=== PATIENT | female | born 1970 | race Caucasian/White ===

== ENCOUNTER → 2016-06-22 | Outpatient (CLI) | payer BC ==
[~2016-06-22] MED LIST: AMOXICILLIN 8751 TAB PO; BENADRYL25 M2 PO; COLACE 100100 MG/CAP PO; CYMBALTA 60MG60 MG PO; MOTRIN 200200 MG/TAB PO; MOTRIN 600600 MG/TAB PO; MULTIPLE VITAMI1 CAP PO; NORCO 325 MG-51 TAB PO; PERCOCET 325 MG1 TA2 PO; PROZAC 20MG20 MG PO; VITAMIN B121000 MCG PO; VITAMIN D 400400 IU PO; ZOFRAN ODT4 MG PO
== END ==
LOC: COL.RAD 07:51
DX: D48.1 Neoplasm of uncertain behavior of connective and other soft tissue (principal); R93.3 Abnormal findings on diagnostic imaging of other parts of digestive tract; Z90.710 Acquired absence of both cervix and uterus; R10.11 Right upper quadrant pain; K43.9 Ventral hernia without obstruction or gangrene
CPT/HCPCS: Q9967

== ENCOUNTER 2016-06-26 07:23 | Day surgery (SDC) | payer BC ==
[~2016-06-26] VITALS: Ht 157.5 cm; Wt 75.6 kg
[~2016-06-26 07:23] MED LIST changes: -AMOXICILLIN 8751 TAB PO; -BENADRYL25 M2 PO; -COLACE 100100 MG/CAP PO; -CYMBALTA 60MG60 MG PO; -MOTRIN 200200 MG/TAB PO; -MOTRIN 600600 MG/TAB PO; -PERCOCET 325 MG1 TA2 PO; -PROZAC 20MG20 MG PO; -ZOFRAN ODT4 MG PO
[2016-06-26 08:23] VITALS: BP 110/68; PULSE 90; TEMP 97.9
[2016-06-26] MEDS ORDERED: PROZAC 20MG20 MG PO ×2 (08:39→11:58)
[2016-06-26] MEDS ORDERED: PERCOCET 325 MG1 TA2 PO ×3 (08:40→12:07)
[2016-06-26] MEDS ORDERED: BENADRYL25 M2 PO (08:41)
[2016-06-26] MEDS ORDERED: MOTRIN 200200 MG/TAB PO (08:41)
[2016-06-26 11:40] VITALS: BP 131/92; PULSE 85
[2016-06-26 11:55] VITALS: BP 115/72; PULSE 58
[2016-06-26] MEDS ORDERED: ZOFRAN ODT4 MG PO ×2 (11:58→12:07)
[2016-06-26 12:10] VITALS: BP 96/64; PULSE 70
== END 2016-06-26 12:50 | disposition home or self-care (01) ==
LOC: SDCO 07:23
DX: D17.1 Benign lipomatous neoplasm of skin and subcutaneous tissue of trunk (principal)
CPT/HCPCS: J0690; J1885; J2405; J2704; J3010; J7120

== ENCOUNTER 2017-02-21 13:16 | Day surgery (SDC) | payer BC ==
[2017-02-21] VITALS (7 sets, daily range): BP systolic 109–149; BP diastolic 69–92; PULSE 67–100; TEMP 98.1–99
[~2017-02-21] VITALS: Ht 157.5 cm; Wt 73.4 kg
[~2017-02-21 13:16] MED LIST changes: -AMOXICILLIN 8751 TAB PO; -COLACE 100100 MG/CAP PO; -CYMBALTA 60MG60 MG PO; -MOTRIN 600600 MG/TAB PO
[2017-02-21] MEDS ORDERED: CYMBALTA 60MG60 MG PO (13:59)
[2017-02-21] MEDS ORDERED: PERCOCET 325 MG1 TA2 PO (16:42)
[2017-02-21] MEDS ORDERED: MOTRIN 600600 MG/TAB PO (16:43)
[2017-02-21] MEDS ORDERED: COLACE 100100 MG/CAP PO (16:43)
[2017-02-21] MEDS ORDERED: AMOXICILLIN 8751 TAB PO (16:53)
== END 2017-02-21 20:55 | disposition home or self-care (01) ==
LOC: SDCO 13:16 → JCC 17:05 → SDCO 20:55
DX: K35.80 Unspecified acute appendicitis (principal); K21.9 Gastro-esophageal reflux disease without esophagitis; F32.9 Major depressive disorder, single episode, unspecified; F17.210 Nicotine dependence, cigarettes, uncomplicated; F41.9 Anxiety disorder, unspecified; Z90.710 Acquired absence of both cervix and uterus; Z90.721 Acquired absence of ovaries, unilateral
CPT/HCPCS: J2270; J2550; J7120

== ENCOUNTER → 2017-02-21 | Outpatient (CLI) | payer BC ==
[~2017-02-21] MED LIST changes: +AMOXICILLIN 8751 TAB PO; +BENADRYL25 M2 PO; +COLACE 100100 MG/CAP PO; +CYMBALTA 60MG60 MG PO; +MOTRIN 200200 MG/TAB PO; +MOTRIN 600600 MG/TAB PO; +PERCOCET 325 MG1 TA2 PO; +PROZAC 20MG20 MG PO; +ZOFRAN ODT4 MG PO
[2017-02-21 12:12] LABS: BASO # 0.1 (0.0-0.2); BASO % 0.9 % (0.0-2.0); EOS # 0.1 (0.0-0.7); EOS % 0.7 % (0-4.0); GRAN # 4.7 (1.4-6.5); GRAN % 57.4 % (42.2-75.2); HEMATOCRIT 39.5 % (37.0-47.0); HEMOGLOBIN 13.1 g/dl (12.5-16.0); LYMPH # 2.6 (1.2-3.4); LYMPH % 32.4 % (20.0-51.0); MEAN CELL VOLUME 93 fl (80.0-100.0); MEAN CORPUSCULAR HEMOGLOBIN 31 pg (27.0-31.0); MEAN CORPUSCULAR HGB CONC 33 g/dl (33.0-37.0); MEAN PLATELET VOLUME 9.2 fl (7.4-10.4); MONO # 0.7 (0.1-0.6); MONO % 8.4 % (1.7-9.3); PLATELET COUNT 357 K/mm3 (130-400); RED BLOOD COUNT 4.23 M/mm3 (4.10-5.30); REDCELL DISTRIBUTION WIDTH-CV 11.9 % (11.5-14.5); WHITE BLOOD COUNT 8.1 K/mm3 (4.8-10.8)
[2017-02-21 12:31] LABS: ADJUSTED CALCIUM 9.3 mg/dL (8.4-10.2); ALBUMIN 4.2 gm/dL (3.5-5.0); BILIRUBIN,TOTAL 0.5 mg/dL (0.0-1.0); CALCIUM 9.5 mg/dL (8.4-10.2); CREATININE, serum 0.64 mg/dL (0.52-1.25); POTASSIUM 4.4 mmol/L (3.4-5.0); TOTAL PROTEIN 7.5 gm/dL (6.4-8.2)
== END ==
LOC: COL.RAD 09:58
PROVIDERS: Family Medicine
DX: R10.31 Right lower quadrant pain (principal); N81.10 Cystocele, unspecified
CPT/HCPCS: J0694; J1100; J2405; J2704; J2710; J3010; Q9967

== ENCOUNTER → 2017-03-01 | Outpatient (CLI) | payer BC ==
[~2017-03-01] MED LIST changes: +AMOXICILLIN 8751 TAB PO; +COLACE 100100 MG/CAP PO; +CYMBALTA 60MG60 MG PO; +MOTRIN 600600 MG/TAB PO
== END ==
LOC: COL.RAD 15:02
DX: R10.30 Lower abdominal pain, unspecified (principal); Z90.89 Acquired absence of other organs
CPT/HCPCS: Q9967

== ENCOUNTER → 2018-02-06 | Outpatient (CLI) | payer OTHER | LOC: MC.RAD 10:12 | DX: Z12.31 Encounter for screening mammogram for malignant neoplasm of breast (principal) ==

== ENCOUNTER → 2019-12-14 | Outpatient (CLI) | payer OTHER | LOC: COL.LAB 14:36 | DX: Z20.828 Contact with and (suspected) exposure to other viral communicable diseases (principal) ==

== ENCOUNTER 2020-02-04 06:28 | Day surgery (SDC) | payer OTHER ==
[~2020-02-04] VITALS: Ht 157.5 cm; Wt 83.3 kg
[2020-02-04 06:53] VITALS: BP 130/84; PULSE 95; TEMP 98.6
[2020-02-04] MEDS ORDERED: ADVIL200 MG PO (07:02)
--- NOTE | 2020-02-04 07:04 | NUR ---
TO RM AT 0630 CALL LIGHT IN REACH AT BEDSIDE.
[2020-02-04 08:25] VITALS: BP 106/79; PULSE 89; TEMP 97.4
--- NOTE | 2020-02-04 08:25 | NUR ---
PATIENT TO BAY 3 PER CART FROM ENDOSCOPY. ALERT ORIENTED X3 AND CRYING. AMBULATED TO RECLINER . AT BEDSIDE. C/O IV HURTING. DISCONTINUED IV AND INT. DR REEVES INTO TALK WITH PATIENT AND HER RECEIVED WATER AND CRACKERS.
[2020-02-04 08:40] VITALS: BP 124/81; PULSE 80
--- NOTE | 2020-02-04 08:40 | NUR ---
ATE 100% AND TOLERATED WELL 02 SAT 100% ON ROOM AIR NO LONGER CRYING.
--- NOTE | 2020-02-04 08:50 | NUR ---
RECEIVED DISCHARGE INSTRUCTIONS AND VERBALIZED UNDERSTANDING. PATIENT GETTING DRESSED
--- NOTE | 2020-02-04 09:00 | NUR ---
DISCHARGED PER WC BY NURSING STAFF TO PRIVATE CAR IN CARE OF BRADY.
== END 2020-02-04 09:20 | disposition home or self-care (01) ==
LOC: SDCO 06:28
DX: Z12.11 Encounter for screening for malignant neoplasm of colon (principal); D12.5 Benign neoplasm of sigmoid colon; E66.9 Obesity, unspecified; F17.210 Nicotine dependence, cigarettes, uncomplicated; F32.9 Major depressive disorder, single episode, unspecified; F41.9 Anxiety disorder, unspecified; K21.9 Gastro-esophageal reflux disease without esophagitis; Z85.41 Personal history of malignant neoplasm of cervix uteri; Z90.710 Acquired absence of both cervix and uterus; Z90.721 Acquired absence of ovaries, unilateral
CPT/HCPCS: J2704; J7030

== ENCOUNTER → 2020-02-26 | Outpatient (CLI) | payer OTHER ==
[~2020-02-26] MED LIST changes: +ADVIL200 MG PO
== END ==
LOC: ZCOL.LAB 16:07
DX: Z20.828 Contact with and (suspected) exposure to other viral communicable diseases (principal)

== ENCOUNTER → 2023-12-03 | Outpatient (CLI) | payer BC | LOC: MC.RAD 13:21 | DX: Z12.31 Encounter for screening mammogram for malignant neoplasm of breast (principal) ==